=== PATIENT | female | born 1970 | race African-American/Black ===

== ENCOUNTER 2023-02-24 12:56 | Inpatient (IN) ==
[2023-02-24] MEDS ORDERED: Albuterol/Ipratropium NEB.SOL (2.5/0.5 MG) 3 ML NEB.SOLN INH ONE (14:10)
[2023-02-24 14:42] LABS: Hematocrit 22.8 % (35-45); Hemoglobin 7.7 g/dL (11.5-14.3); Mean Corpuscular Hgb Conc 33.6 g/dL (31-36); Mean Corpuscular Volume 92.3 fL (80-97); Platelet Count 233 10^3/uL (150-450); Red Blood Count 2.47 10^6/uL (3.63-4.92); Red Cell Distribution Width 21.1 % (12-17); White Blood Count 5.9 10^3/uL (3.8-11.8)
[2023-02-24 15:03] LABS: Rapid COVID-19 Molecular Undetected (Undetected)
[2023-02-24 15:08] LABS: ALT 6 U/L (7-52); Albumin 3.2 g/dL (3.2-5.2); Albumin/Globulin Ratio 0.7 (1-3); Alkaline Phosphatase 168 U/L (35-149); Anion Gap 12 mmol/L (2-16); Blood Urea Nitrogen 9 mg/dL (6-24); CO2 Carbon Dioxide 30 mmol/L (22-32); Calcium 7.5 mg/dL (8.6-10.3); Chloride 88 mmol/L (101-111); Creatinine, Serum 2.62 mg/dL (0.51-0.95); Globulin 4.9 g/dL (2-4); Glucose 201 mg/dL (70-100); Magnesium 1.8 mg/dL (1.9-2.7); Sodium 130 mmol/L (135-145); Total Bilirubin 0.7 mg/dL (0.2-1.0); Total Protein 8.1 g/dL (6.4-8.9); eGFR CKD-EPI 21.1 (>60)
[2023-02-24 15:26] LABS: Influenza A Molecular Negative (Negative); Influenza B Molecular Negative (Negative)
[2023-02-24] MEDS ORDERED: Iodixanol (CONTRAST) 320 MG/ML 100 ML SDV IV ONE (15:33)
[2023-02-24 15:35] LABS: ABS Basophils 0.1 10^3/uL (0.0-0.1); ABS Eosinophils 0.1 10^3/uL (0.0-0.5); ABS Lymphocytes 1.4 10^3/uL (1.0-4.8); ABS Monocytes 0.8 10^3/uL (0.0-0.9); ABS Neutrophils 3.5 10^3/uL (1.5-7.6); ABS Nucleated RBC 0.01 10^3/ul; Anisocytosis 3+; Eosinophil % 2.3 %; Lymphocyte % 23.2 %; Nucleated Red Blood Cells % 0.2 %/100WBC (0.0-0.8)
[2023-02-24 17:24] LABS: C Reactive Protein 102.21 mg/L (<8.01)
[2023-02-24 17:57] LABS: Potassium Redraw 3.7 mmol/L (3.5-5.0)
[2023-02-24] MEDS ORDERED: Dextrose 50% Syringe 50 ml 25 GM/50 ML SYRINGE IV PUSH PRN (18:04)
[2023-02-24 19:07] LABS: Erythrocyte Sed Rate 80 mm/Hr (0-29)
[2023-02-24] MEDS ORDERED: NS 0.9% 1000 ml BAG 200 ML IV PRN (22:15)
[2023-02-24] MEDS ORDERED: NS 0.9% 1000 ml BAG 100 ML IV PRN (22:15)
[2023-02-25] MEDS: Insulin GLARGINE 100 un/ml 10 ml VIAL SUBCUT SCH ×2 (00:57→10:18)
[2023-02-25] MEDS: CMCS: Dorzolamide 2% OPTH (NF) 10 ML BTL BOTH EYES SCH ×3 (00:57→22:06)
[2023-02-25 06:45] LABS: Hepatitis B Surface Ab Immune (Immune)
[2023-02-25 09:43] LABS: ABS Basophils 0.1 10^3/uL (0.0-0.1); ABS Eosinophils 0.2 10^3/uL (0.0-0.5); ABS Lymphocytes 1.4 10^3/uL (1.0-4.8); ABS Monocytes 1.3 10^3/uL (0.0-0.9); ABS Neutrophils 4.1 10^3/uL (1.5-7.6); ABS Nucleated RBC 0.01 10^3/ul; Eosinophil % 3.1 %; Hematocrit 22.4 % (35-45); Hemoglobin 7.6 g/dL (11.5-14.3); Lymphocyte % 19.7 %; Mean Corpuscular Hgb Conc 33.7 g/dL (31-36); Mean Corpuscular Volume 91.8 fL (80-97); Mean Platelet Volume 7.8 fL (7.5-11.2); Nucleated Red Blood Cells % 0.1 %/100WBC (0.0-0.8); Platelet Count 269 10^3/uL (150-450); Red Blood Count 2.44 10^6/uL (3.63-4.92); Red Cell Distribution Width 21.2 % (12-17); White Blood Count 7.1 10^3/uL (3.8-11.8)
[2023-02-25 11:05] LABS: Calcium 7.4 mg/dL (8.6-10.3); Creatinine, Serum 3.45 mg/dL (0.51-0.95); Magnesium 1.8 mg/dL (1.9-2.7); Potassium 3.4 mmol/L (3.5-5.0); eGFR CKD-EPI 15.1 (>60)
[2023-02-25] MEDS ORDERED: Lactated Ringers 1000 ml BAG 200 ML IV ONE (14:32)
[2023-02-25] MEDS ORDERED: PHENYLEPHRINE DRIP IVPREMIX 50 MG/250 ML BAG IV SCH (15:00)
[2023-02-25 15:24] LABS: Hematocrit 20.7 % (35-45); Hemoglobin 6.9 g/dL (11.5-14.3)
[2023-02-25 19:33] LABS: Hematocrit 21.7 % (35-45); Hemoglobin 7.2 g/dL (11.5-14.3); Mean Corpuscular Hemoglobin 30.9 pg (27-33); Mean Corpuscular Hgb Conc 33.2 g/dL (31-36); Mean Corpuscular Volume 93.2 fL (80-97); Mean Platelet Volume 7.9 fL (7.5-11.2); Platelet Count 259 10^3/uL (150-450); Red Blood Count 2.32 10^6/uL (3.63-4.92); White Blood Count 6.1 10^3/uL (3.8-11.8)
[2023-02-25] MEDS ORDERED: Dextrose 50% Syringe 50 ml 25 GM/50 ML SYRINGE IV PUSH PRN (22:11)
[2023-02-26] MEDS ORDERED: Vancomycin 1,000 MG in NS 0.9% 250 ml 250 ML IVPB ONE (03:00)
[2023-02-26] MEDS: Heparin 1,000 UNIT/ML 10 ml (10,000 UNITS) CATHLAB/DIALYSIS DIALYSIS PRN (03:28)
[2023-02-26 06:05] LABS: ABS Lymphocytes 1.1 10^3/uL (1.0-4.8); ABS Monocytes 0.8 10^3/uL (0.0-0.9); ABS Neutrophils 3.8 10^3/uL (1.5-7.6); Eosinophil % 0.3 %; Hematocrit 20.8 % (35-45); Lymphocyte % 18.4 %; Mean Corpuscular Hemoglobin 30.9 pg (27-33); Mean Corpuscular Hgb Conc 33.8 g/dL (31-36); Mean Corpuscular Volume 91.6 fL (80-97); Mean Platelet Volume 7.9 fL (7.5-11.2); Platelet Count 250 10^3/uL (150-450); Red Blood Count 2.27 10^6/uL (3.63-4.92); Red Cell Distribution Width 21.4 % (12-17); White Blood Count 5.7 10^3/uL (3.8-11.8)
[2023-02-26 06:40] LABS: Anion Gap 7 mmol/L (2-16); Blood Urea Nitrogen 6 mg/dL (6-24); CO2 Carbon Dioxide 26 mmol/L (22-32); Calcium 7.5 mg/dL (8.6-10.3); Chloride 99 mmol/L (101-111); Creatinine, Serum 1.58 mg/dL (0.51-0.95); Glucose 158 mg/dL (70-100); Magnesium 1.6 mg/dL (1.9-2.7); Sodium 132 mmol/L (135-145); eGFR CKD-EPI 38.7 (>60)
[2023-02-26] MEDS: Insulin GLARGINE 100 un/ml 10 ml VIAL SUBCUT SCH (07:48)
[2023-02-26] MEDS: CMCS: Dorzolamide 2% OPTH (NF) 10 ML BTL BOTH EYES SCH ×2 (08:14→20:00)
[2023-02-26] MEDS ORDERED: Vancomycin per Pharmacy 1 EA NOTE FOLLOW UP PRN (13:33)
[2023-02-26 14:49] LABS: Hepatitis B Surface Antigen Nonreactive (Nonreactive)
[2023-02-27 05:19] LABS: ABS Eosinophils 0.1 10^3/uL (0.0-0.5); ABS Lymphocytes 1.5 10^3/uL (1.0-4.8); ABS Monocytes 1.2 10^3/uL (0.0-0.9); ABS Neutrophils 5.2 10^3/uL (1.5-7.6); ABS Nucleated RBC 0.01 10^3/ul; Eosinophil % 0.7 %; Hematocrit 21.5 % (35-45); Lymphocyte % 19.2 %; Mean Corpuscular Hemoglobin 30.3 pg (27-33); Mean Corpuscular Hgb Conc 32.6 g/dL (31-36); Mean Platelet Volume 7.9 fL (7.5-11.2); Nucleated Red Blood Cells % 0.1 %/100WBC (0.0-0.8); Platelet Count 298 10^3/uL (150-450); Red Blood Count 2.31 10^6/uL (3.63-4.92); Red Cell Distribution Width 21.2 % (12-17)
[2023-02-27 05:35] LABS: Calcium 7.5 mg/dL (8.6-10.3); Creatinine, Serum 3.2 mg/dL (0.51-0.95); Potassium 3.4 mmol/L (3.5-5.0); eGFR CKD-EPI 16.6 (>60)
[2023-02-27] MEDS ORDERED: Potassium Chlor 20 meq TAB.ER PO ONE (05:51)
[2023-02-27 07:28] LABS: Magnesium 1.6 mg/dL (1.9-2.7)
[2023-02-27] MEDS: CMCS: Dorzolamide 2% OPTH (NF) 10 ML BTL BOTH EYES SCH ×2 (07:53→20:16)
[2023-02-27] MEDS: Insulin GLARGINE 100 un/ml 10 ml VIAL SUBCUT SCH (08:04)
[2023-02-27] MEDS ORDERED: Magnesium Sulf 4 GM/100 ML IV 4,000 MG/100 ML BAG IVPB ONE (09:44)
[2023-02-27] MEDS: Heparin 1,000 UNIT/ML 10 ml (10,000 UNITS) CATHLAB/DIALYSIS DIALYSIS PRN ×5 (14:20→18:35)
[2023-02-27] MEDS: Albumin Human 25% 25 GM/100 ML BTL IV PRN (18:46)
[2023-02-28 04:58] LABS: Hematocrit 22.7 % (35-45); Hemoglobin 7.3 g/dL (11.5-14.3); Mean Corpuscular Hemoglobin 30.8 pg (27-33); Mean Corpuscular Volume 96.2 fL (80-97); Mean Platelet Volume 8.1 fL (7.5-11.2); Platelet Count 309 10^3/uL (150-450); Red Blood Count 2.36 10^6/uL (3.63-4.92); Red Cell Distribution Width 21.5 % (12-17); White Blood Count 8.4 10^3/uL (3.8-11.8)
[2023-02-28 05:14] LABS: Calcium 7.9 mg/dL (8.6-10.3); Creatinine, Serum 2.22 mg/dL (0.51-0.95); Potassium 3.9 mmol/L (3.5-5.0); eGFR CKD-EPI 25.7 (>60)
[2023-02-28 05:28] LABS: Vancomycin Random 16.9 mcg/mL
[2023-02-28] MEDS ORDERED: Vancomycin Random Level NOTE FOLLOW UP ONE (06:00)
[2023-02-28 08:57] LABS: Glucose Confirmatory 422 mg/dL (70-100)
[2023-02-28] MEDS: Insulin GLARGINE 100 un/ml 10 ml VIAL SUBCUT SCH (09:27)
[2023-02-28] MEDS: CMCS: Dorzolamide 2% OPTH (NF) 10 ML BTL BOTH EYES SCH (09:30)
[2023-02-28] MEDS ORDERED: Lidocaine 2.5%/Prilocain 2.5% 5 GM TUBE TOPICAL SCH (15:00)
[2023-02-28] MEDS ORDERED: Vancomycin 500 MG in NS 0.9% 250 ML IVPB ONE (16:00)
[2023-02-28] MEDS ORDERED: Vancomycin per Pharmacy 1 EA NOTE FOLLOW UP PRN (18:05)
[2023-03-01] MEDS: CMCS: Dorzolamide 2% OPTH (NF) 10 ML BTL BOTH EYES SCH ×3 (00:26→20:35)
[2023-03-01] MEDS ORDERED: Saline NASAL SPRAY 0.65% BTL BOTH NARES PRN (01:45)
[2023-03-01] MEDS ORDERED: Vancomycin Random Level NOTE FOLLOW UP ONE (06:00)
[2023-03-01] MEDS: Insulin GLARGINE 100 un/ml 10 ml VIAL SUBCUT SCH (07:51)
[2023-03-01] MEDS: Heparin 1,000 UNIT/ML 10 ml (10,000 UNITS) CATHLAB/DIALYSIS DIALYSIS PRN ×5 (08:00→12:30)
[2023-03-01] MEDS: Albumin Human 25% 25 GM/100 ML BTL IV PRN ×3 (08:21→12:02)
[2023-03-01 08:45] LABS: CRP High Sensitivity 33.61 mg/L (<2.00); Calcium 8.2 mg/dL (8.6-10.3); Creatinine, Serum 3.68 mg/dL (0.51-0.95); Magnesium 2.1 mg/dL (1.9-2.7); Potassium 4.9 mmol/L (3.5-5.0)
[2023-03-01 08:46] LABS: ABS Lymphocytes 1.1 10^3/uL (1.0-4.8); ABS Monocytes 0.7 10^3/uL (0.0-0.9); ABS Neutrophils 4.6 10^3/uL (1.5-7.6); ABS Nucleated RBC 0.01 10^3/ul; Hematocrit 17.3 % (35-45); Hemoglobin 5.5 g/dL (11.5-14.3); Lymphocyte % 17.1 %; Mean Corpuscular Hemoglobin 30.8 pg (27-33); Mean Corpuscular Hgb Conc 31.8 g/dL (31-36); Mean Corpuscular Volume 96.8 fL (80-97); Mean Platelet Volume 7.4 fL (7.5-11.2); Nucleated Red Blood Cells % 0.1 %/100WBC (0.0-0.8); Platelet Count 259 10^3/uL (150-450); Red Blood Count 1.79 10^6/uL (3.63-4.92); Red Cell Distribution Width 21.6 % (12-17); White Blood Count 6.4 10^3/uL (3.8-11.8)
[2023-03-01] MEDS ORDERED: Ondansetron 4 mg VIAL 2 MG/ML 2 ml VIAL IV PRN (08:47)
[2023-03-01 09:23] LABS: TSH Ultra Thyroid Stim Horm 4.87 mcIU/mL (0.34-5.60)
[2023-03-01 09:41] LABS: ABS Lymphocytes 1.8 10^3/uL (1.0-4.8); ABS Monocytes 0.9 10^3/uL (0.0-0.9); ABS Neutrophils 6.2 10^3/uL (1.5-7.6); ABS Nucleated RBC 0.01 10^3/ul; Eosinophil % 0.1 %; Hematocrit 22.3 % (35-45); Hemoglobin 7.4 g/dL (11.5-14.3); Lymphocyte % 20.1 %; Mean Corpuscular Hemoglobin 31.5 pg (27-33); Mean Corpuscular Hgb Conc 33.1 g/dL (31-36); Mean Corpuscular Volume 95.1 fL (80-97); Mean Platelet Volume 7.7 fL (7.5-11.2); Nucleated Red Blood Cells % 0.1 %/100WBC (0.0-0.8); Platelet Count 345 10^3/uL (150-450); Red Blood Count 2.34 10^6/uL (3.63-4.92); Red Cell Distribution Width 21.2 % (12-17); White Blood Count 8.9 10^3/uL (3.8-11.8)
[2023-03-01 11:20] LABS: C Reactive Protein 33.94 mg/L (<8.01)
[2023-03-01] MEDS ORDERED: Vancomycin 500 MG in NS 0.9% 250 ML IVPB ONE (16:00)
[2023-03-02] MEDS ORDERED: Vancomycin Random Level NOTE FOLLOW UP ONE (06:00)
[2023-03-02 06:09] LABS: ABS Eosinophils 0.1 10^3/uL (0.0-0.5); ABS Lymphocytes 1.6 10^3/uL (1.0-4.8); ABS Monocytes 1.5 10^3/uL (0.0-0.9); ABS Neutrophils 5.2 10^3/uL (1.5-7.6); ABS Nucleated RBC 0.07 10^3/ul; Eosinophil % 0.8 %; Hemoglobin 7.3 g/dL (11.5-14.3); Mean Corpuscular Hemoglobin 31.5 pg (27-33); Mean Corpuscular Volume 95.4 fL (80-97); Mean Platelet Volume 7.5 fL (7.5-11.2); Nucleated Red Blood Cells % 0.8 %/100WBC (0.0-0.8); Platelet Count 327 10^3/uL (150-450); Red Blood Count 2.31 10^6/uL (3.63-4.92); Red Cell Distribution Width 21.5 % (12-17); White Blood Count 8.4 10^3/uL (3.8-11.8)
[2023-03-02 06:28] LABS: Calcium 8.4 mg/dL (8.6-10.3); Creatinine, Serum 2.42 mg/dL (0.51-0.95); Magnesium 1.7 mg/dL (1.9-2.7); Potassium 3.9 mmol/L (3.5-5.0); eGFR CKD-EPI 23.2 (>60)
[2023-03-02] MEDS: Insulin GLARGINE 100 un/ml 10 ml VIAL SUBCUT SCH (09:08)
[2023-03-02] MEDS: CMCS: Dorzolamide 2% OPTH (NF) 10 ML BTL BOTH EYES SCH (09:10)
[2023-03-02] MEDS: Heparin 1,000 UNIT/ML 10 ml (10,000 UNITS) CATHLAB/DIALYSIS DIALYSIS PRN ×3 (10:55→14:12)
[2023-03-02] MEDS ORDERED: Vancomycin 500 MG in NS 0.9% 250 ML IVPB ONE (14:00)
[2023-03-02 14:54] VITALS: BP 125/86
[2023-03-03] MEDS ORDERED: Vancomycin Random Level NOTE FOLLOW UP ONE (06:00)
== END 2023-03-02 16:50 | disposition home or self-care (01) | DRG 314 ==
LOC: EDHOLD 12:56 → ED 12:56 → MEDTELE 20:03 → ICU 02-25 14:57 → MED 02-28 18:34
PROVIDERS: ADMIT Student in an Organized Health Care Education/Training Program; ATTEND Student in an Organized Health Care Education/Training Program

== ENCOUNTER 2023-03-04 12:14 | Inpatient (IN) ==
[2023-03-04] MEDS: NS 0.9% 250 ml 250 ML IV ONE ×2 (12:50→15:02)
[2023-03-04 12:54] LABS: ABS Basophils 0.1 10^3/uL (0.0-0.1); ABS Eosinophils 0.1 10^3/uL (0.0-0.5); ABS Monocytes 1.4 10^3/uL (0.0-0.9); ABS Neutrophils 6.5 10^3/uL (1.5-7.6); ABS Nucleated RBC 0.12 10^3/ul; Eosinophil % 1.2 %; Hematocrit 24.3 % (35-45); Hemoglobin 7.8 g/dL (11.5-14.3); Lymphocyte % 20.2 %; Mean Corpuscular Hemoglobin 31.8 pg (27-33); Mean Corpuscular Volume 99.5 fL (80-97); Mean Platelet Volume 8.1 fL (7.5-11.2); Nucleated Red Blood Cells % 1.1 %/100WBC (0.0-0.8); Platelet Count 322 10^3/uL (150-450); Red Blood Count 2.44 10^6/uL (3.63-4.92); Red Cell Distribution Width 22.9 % (12-17); White Blood Count 10.1 10^3/uL (3.8-11.8)
[2023-03-04 13:24] LABS: ALT 8 U/L (7-52); Albumin 4.1 g/dL (3.2-5.2); Alkaline Phosphatase 142 U/L (35-149); Anion Gap 16 mmol/L (2-16); Blood Urea Nitrogen 19 mg/dL (6-24); C Reactive Protein 85.34 mg/L (<8.01); CO2 Carbon Dioxide 19 mmol/L (22-32); Calcium 8.8 mg/dL (8.6-10.3); Chloride 92 mmol/L (101-111); Creatinine, Serum 2.69 mg/dL (0.51-0.95); Globulin 4.1 g/dL (2-4); Glucose 165 mg/dL (70-100); Lipase 133 U/L (11.0-82.0); Sodium 127 mmol/L (135-145); Total Bilirubin 0.8 mg/dL (0.2-1.0); Total Protein 8.2 g/dL (6.4-8.9); eGFR CKD-EPI 20.4 (>60)
[2023-03-04 13:26] LABS: High Sens Troponin Baseline 21 pg/mL (<15)
[2023-03-04] MEDS: Piperacillin/Tazobac 3.375 BAG 3.375 GM/100 ML BAG IV ONE (13:57)
[2023-03-04 14:34] LABS: High Sensitivity Troponin 1 Hr 21 pg/mL (<15)
[2023-03-04] MEDS: Vancomycin 1,000 MG in NS 0.9% 250 ml 250 ML IVPB ONE (14:45)
[2023-03-04] MEDS ORDERED: NON FORMULARY MED (Vancomycin Per Pharmacy 1 NOTE) FOLLOW UP SCH (14:45)
[2023-03-04 14:46] LABS: Magnesium 1.8 mg/dL (1.9-2.7); Phosphorus 1.7 mg/dL (2.5-5.0); Potassium Redraw 3.7 mmol/L (3.5-5.0)
[2023-03-04] MEDS ORDERED: Dextrose 50% Syringe 50 ml 25 GM/50 ML SYRINGE IV PUSH PRN ×2 (17:48)
[2023-03-04] MEDS: Fluticasone NASAL SPRAY 50MCG 16 gm SPRAY BTL INTRANASAL SCH (18:05)
[2023-03-04] MEDS: Dorzolamide 2% OPTH (NF) 10 ML BTL BOTH EYES SCH (21:13)
[2023-03-05 01:01] LABS: Hematocrit 23.7 % (35-45); Hemoglobin 7.4 g/dL (11.5-14.3); Mean Corpuscular Hemoglobin 31.8 pg (27-33); Mean Corpuscular Hgb Conc 31.3 g/dL (31-36); Mean Corpuscular Volume 101.7 fL (80-97); Mean Platelet Volume 7.8 fL (7.5-11.2); Platelet Count 292 10^3/uL (150-450); Red Blood Count 2.33 10^6/uL (3.63-4.92); Red Cell Distribution Width 22.6 % (12-17); White Blood Count 9.8 10^3/uL (3.8-11.8)
[2023-03-05 01:29] LABS: ABS Eosinophils 0.1 10^3/uL (0.0-0.5); ABS Lymphocytes 2.3 10^3/uL (1.0-4.8); ABS Monocytes 1.4 10^3/uL (0.0-0.9); ABS Neutrophils 5.9 10^3/uL (1.5-7.6); ABS Nucleated RBC 0.15 10^3/ul; Anisocytosis 2+; Eosinophil % 0.6 %; Lymphocyte % 23.4 %; Nucleated Red Blood Cells % 1.6 %/100WBC (0.0-0.8); Polychromasia 1+
[2023-03-05 01:32] LABS: Macrocytosis 1+
[2023-03-05 01:34] LABS: Anion Gap 20 mmol/L (2-16); Blood Urea Nitrogen 22 mg/dL (6-24); CO2 Carbon Dioxide 14 mmol/L (22-32); Calcium 8.4 mg/dL (8.6-10.3); Chloride 94 mmol/L (101-111); Creatinine, Serum 3.25 mg/dL (0.51-0.95); Glucose 96 mg/dL (70-100); Sodium 128 mmol/L (135-145); eGFR CKD-EPI 16.3 (>60)
[2023-03-05 02:45] LABS: PCO2 Arterial 24 mmHg (35-45); PO2 Arterial 179 mmHg (80-100)
[2023-03-05] MEDS: Iodixanol (CONTRAST) 320 MG/ML 100 ML SDV IV ONE (03:09)
[2023-03-05] MEDS: NS 0.9% 250 ml 250 ML IV SCH (07:20)
[2023-03-05] MEDS: fentaNYL 100 mcg/2 ml 50 MCG/ML VIAL IV ONE (07:20)
[2023-03-05] MEDS: Prothrombin Complex Conc. DOSE = Units Factor IX (nine) IV SLOW PU ONE (07:35)
[2023-03-05] MEDS: Albumin Human 5% 12.5 GM/250 ML BTL IV ONE ×2 (07:48→11:41)
[2023-03-05] MEDS: Norepinephrine 4 MG/250mL NS 4,000 MCG/250 ML BAG IV SCH ×2 (07:58→11:52)
[2023-03-05] MEDS: Midazolam 5 mg/5 ml VIAL 1 mg/ml 5 ml VIAL (5 mg) IV SLOW PU ONE (08:08)
[2023-03-05 08:55] LABS: Body Fluid Appearance Bloody; Body Fluid Color Red; Body Fluid Source Pericardial Fluid
[2023-03-05] MEDS: fentaNYL INFUSION 50 mcg/mL VL 2,500 MCG/50 ML VIAL IV SCH ×2 (09:30→21:40)
[2023-03-05] MEDS: EPINEPHrine 1 MG/ML MDV 5 MG in D5W 250 ml BAG 245 ML IV SCH (09:49)
[2023-03-05 09:54] LABS: Body Fluid Total Nucleated 6579 /mcL
[2023-03-05 09:56] LABS: Resp Rate 14
[2023-03-05 09:59] LABS: PCO2 Arterial 31 mmHg (35-45); PO2 Arterial 338 mmHg (80-100)
[2023-03-05 11:08] LABS: Body Fluid Meta 1 %; Body Fluid Mono 6 %; Body Fluid NRBC 3; Body Fluid Total Cells Counted 200
[2023-03-05] MEDS: Lidocaine 1% VIAL 10 MG/ML 30 ML VIAL ONE (11:40)
[2023-03-05] MEDS: Flumazenil 0.5 mg/5 ml 0.1 MG/ML 5 ml VIAL ONE (11:40)
[2023-03-05] MEDS: Naloxone 4 mg VIAL 0.4 MG/ML 10 ml VIAL (4 mg) ONE (11:40)
[2023-03-05] MEDS: Norepinephrine 4 MG/250mL D5W 4,000 MCG/250 ML BAG IV ONE (11:43)
[2023-03-05] MEDS: EPINEPHrine SYR 0.1MG/ML 10 ml SYRINGE IV ONE (11:43)
[2023-03-05] MEDS: Midazolam 5 mg/5 ml VIAL 1 mg/ml 5 ml VIAL (5 mg) ONE (12:08)
[2023-03-05] MEDS: fentaNYL 100 mcg/2 ml 50 MCG/ML VIAL ONE (12:09)
[2023-03-05 13:10] LABS: Hematocrit 22.7 % (35-45); Hemoglobin 7.3 g/dL (11.5-14.3); Mean Corpuscular Hemoglobin 32.1 pg (27-33); Mean Corpuscular Hgb Conc 32.2 g/dL (31-36); Mean Corpuscular Volume 99.7 fL (80-97); Mean Platelet Volume 7.7 fL (7.5-11.2); Platelet Count 293 10^3/uL (150-450); Red Blood Count 2.28 10^6/uL (3.63-4.92); Red Cell Distribution Width 24.2 % (12-17); White Blood Count 18.2 10^3/uL (3.8-11.8)
[2023-03-05] MEDS ORDERED: NS 0.9% 1000 ml BAG 200 ML IV PRN (13:17)
[2023-03-05] MEDS ORDERED: NS 0.9% 1000 ml BAG 100 ML IV PRN (13:17)
[2023-03-05 13:40] LABS: ABS Monocytes 2.8 10^3/uL (0.0-0.9); ABS Neutrophils 14.4 10^3/uL (1.5-7.6); ABS Nucleated RBC 0.09 10^3/ul; Lymphocyte % 5.3 %; Nucleated Red Blood Cells % 0.5 %/100WBC (0.0-0.8)
[2023-03-05 13:47] LABS: Albumin 3.6 g/dL (3.2-5.2); Albumin/Globulin Ratio 1.2 (1-3); Calcium 7.9 mg/dL (8.6-10.3); Creatinine, Serum 3.45 mg/dL (0.51-0.95); Potassium 3.6 mmol/L (3.5-5.0); Total Bilirubin 1.1 mg/dL (0.2-1.0); Total Protein 6.6 g/dL (6.4-8.9); eGFR CKD-EPI 15.1 (>60)
[2023-03-05] MEDS: Vancomycin 1,000 MG in NS 0.9% 250 ml 250 ML IVPB ONE (14:22)
[2023-03-05] MEDS: fentaNYL 100 mcg/2 ml 50 MCG/ML VIAL IV SLOW PU PRN (15:47)
[2023-03-05] MEDS: Chlorhexidine MOUTHWASH 0.12% 15 ML UDC TOPICAL SCH (16:18)
[2023-03-05] MEDS ORDERED: Vancomycin per Pharmacy 1 EA NOTE FOLLOW UP PRN (17:00)
[2023-03-05] MEDS: Dexmedetomidine 1,000 MCG in NS 0.9% 250 ml 240 ML IV SCH (17:10)
[2023-03-05] MEDS ORDERED: Vancomycin - DIALYSIS DOSING 1 EA NOTE FOLLOW UP SCH (18:00)
[2023-03-06] MEDS: Vancomycin Random Level NOTE FOLLOW UP ONE (06:22)
[2023-03-06 06:41] LABS: Hematocrit 25.3 % (35-45); Hemoglobin 8.1 g/dL (11.5-14.3); Mean Corpuscular Hemoglobin 32.4 pg (27-33); Mean Corpuscular Volume 101.1 fL (80-97); Mean Platelet Volume 7.4 fL (7.5-11.2); Platelet Count 345 10^3/uL (150-450); Red Blood Count 2.51 10^6/uL (3.63-4.92); White Blood Count 17.8 10^3/uL (3.8-11.8)
[2023-03-06 06:57] LABS: Calcium 7.8 mg/dL (8.6-10.3); Creatinine, Serum 3.99 mg/dL (0.51-0.95); Potassium 4.3 mmol/L (3.5-5.0); eGFR CKD-EPI 12.7 (>60)
[2023-03-06 07:12] LABS: ABS Basophils 0.2 10^3/uL (0.0-0.1); ABS Lymphocytes 1.5 10^3/uL (1.0-4.8); ABS Monocytes 2.4 10^3/uL (0.0-0.9); ABS Neutrophils 13.7 10^3/uL (1.5-7.6); ABS Nucleated RBC 0.16 10^3/ul; Anisocytosis 3+; Eosinophil % 0.3 %; Lymphocyte % 8.2 %; Macrocytosis 1+; Nucleated Red Blood Cells % 0.9 %/100WBC (0.0-0.8); Polychromasia 3+
[2023-03-06] MEDS: Heparin 1,000 UNIT/ML 10 ml (10,000 UNITS) CATHLAB/DIALYSIS DIALYSIS PRN (07:38)
[2023-03-06] MEDS: Albumin Human 25% 25 GM/100 ML BTL IV PRN (07:48)
[2023-03-06] MEDS ORDERED: Zosyn per Pharmacy NOTE FOLLOW UP SCH (09:00)
[2023-03-06] MEDS: Norepinephrine 4 MG/250mL NS 4,000 MCG/250 ML BAG IV SCH (09:56)
[2023-03-06] MEDS: Pantoprazole VIAL 40 MG VIAL IV SCH (11:35)
[2023-03-06] MEDS: Piperacillin/Tazobac 3.375 BAG 3.375 GM/100 ML BAG IV ONE (11:52)
[2023-03-06] MEDS: Norepinephrine 16 MG/250mL NS 16,000 MCG/250 ML BAG IV SCH (12:17)
[2023-03-06] MEDS: ZOSYN 3.375 GM Q12H per EXTENDED INFUSION IV SCH (15:40)
[2023-03-06] MEDS ORDERED: NS 0.9% 1000 ml BAG 200 ML IV PRN (16:01)
[2023-03-06 17:51] LABS: PCO2 Arterial 37 mmHg (35-45); PO2 Arterial 152 mmHg (80-100)
[2023-03-06 18:18] LABS: Albumin 3.7 g/dL (3.2-5.2); Albumin/Globulin Ratio 1.4 (1-3); Calcium 8.1 mg/dL (8.6-10.3); Creatinine, Serum 1.78 mg/dL (0.51-0.95); Globulin 2.7 g/dL (2-4); Magnesium 1.5 mg/dL (1.9-2.7); Total Protein 6.4 g/dL (6.4-8.9); eGFR CKD-EPI 33.5 (>60)
[2023-03-06 18:29] LABS: ABS Basophils 0.1 10^3/uL (0.0-0.1); ABS Eosinophils 0.1 10^3/uL (0.0-0.5); ABS Lymphocytes 1.4 10^3/uL (1.0-4.8); ABS Monocytes 2.4 10^3/uL (0.0-0.9); ABS Neutrophils 8.3 10^3/uL (1.5-7.6); ABS Nucleated RBC 0.07 10^3/ul; Anisocytosis 2+; Eosinophil % 0.8 %; Hematocrit 22.1 % (35-45); Hemoglobin 7.2 g/dL (11.5-14.3); Lymphocyte % 11.7 %; Macrocytosis 2+; Mean Corpuscular Hemoglobin 31.8 pg (27-33); Mean Corpuscular Hgb Conc 32.4 g/dL (31-36); Mean Corpuscular Volume 98.3 fL (80-97); Mean Platelet Volume 7.1 fL (7.5-11.2); Microcytosis 1+; Nucleated Red Blood Cells % 0.6 %/100WBC (0.0-0.8); Platelet Count 249 10^3/uL (150-450); Red Blood Count 2.25 10^6/uL (3.63-4.92); Red Cell Distribution Width 27.4 % (12-17); Target Cells 1+; White Blood Count 12.3 10^3/uL (3.8-11.8)
[2023-03-06] MEDS: KCL 20 MEQ/100 ML IVPREMIX 20 MEQ/100 ML BAG IV ONE (19:37)
[2023-03-06] MEDS: Magnesium Sulfate 2 gm BAG 2 GM/50 ML BAG IVPB ONE (20:11)
[2023-03-06] MEDS: EPINEPHRINE IV SCH (20:42)
[2023-03-06] MEDS: NS 0.9% IV SCH (20:42)
[2023-03-07 00:15] LABS: Hematocrit 23.7 % (35-45); Hemoglobin 7.8 g/dL (11.5-14.3)
[2023-03-07 00:23] LABS: Calcium 8.5 mg/dL (8.6-10.3); Creatinine, Serum 2.06 mg/dL (0.51-0.95); Magnesium 2.5 mg/dL (1.9-2.7); Potassium 3.5 mmol/L (3.5-5.0); eGFR CKD-EPI 28.1 (>60)
[2023-03-07 04:30] LABS: Calcium 8.2 mg/dL (8.6-10.3); Creatinine, Serum 2.29 mg/dL (0.51-0.95); Magnesium 2.4 mg/dL (1.9-2.7); Potassium 3.3 mmol/L (3.5-5.0); eGFR CKD-EPI 24.8 (>60)
[2023-03-07] MEDS: Vancomycin Random Level NOTE FOLLOW UP ONE (04:30)
[2023-03-07 04:31] LABS: Hematocrit 23.7 % (35-45); Hemoglobin 7.7 g/dL (11.5-14.3); Mean Corpuscular Hemoglobin 31.6 pg (27-33); Mean Corpuscular Hgb Conc 32.6 g/dL (31-36); Mean Corpuscular Volume 96.9 fL (80-97); Mean Platelet Volume 7.3 fL (7.5-11.2); Platelet Count 260 10^3/uL (150-450); Red Blood Count 2.45 10^6/uL (3.63-4.92); Red Cell Distribution Width 26.6 % (12-17); White Blood Count 13.7 10^3/uL (3.8-11.8)
[2023-03-07 04:50] LABS: ABS Basophils 0.1 10^3/uL (0.0-0.1); ABS Eosinophils 0.1 10^3/uL (0.0-0.5); ABS Lymphocytes 2.2 10^3/uL (1.0-4.8); ABS Monocytes 2.4 10^3/uL (0.0-0.9); ABS Neutrophils 8.8 10^3/uL (1.5-7.6); ABS Nucleated RBC 0.09 10^3/ul; Eosinophil % 0.7 %; Lymphocyte % 16.1 %; Nucleated Red Blood Cells % 0.7 %/100WBC (0.0-0.8)
[2023-03-07] MEDS: KCL 20 MEQ/100 ML IVPREMIX 20 MEQ/100 ML BAG IV ONE (05:06)
[2023-03-07 05:08] LABS: Vancomycin Random 32.1 mcg/mL
[2023-03-07] MEDS ORDERED: Vancomycin 500 MG in NS 0.9% 250 ml 250 ML IVPB SCH (09:00)
[2023-03-07] MEDS: Midazolam 2 mg/2 ml VIAL 1 mg/ml 2 ml VIAL (2 mg) IV SLOW PU ONE ×2 (10:20→19:00)
[2023-03-07] MEDS: Midazolam 2 mg/2 ml VIAL 1 mg/ml 2 ml VIAL (2 mg) ONE (10:21)
[2023-03-07 13:43] LABS: BF PH 7.3
[2023-03-07] MEDS: Heparin 1,000 UNIT/ML 10 ml (10,000 UNITS) CATHLAB/DIALYSIS DIALYSIS PRN (14:40)
[2023-03-07 14:43] LABS: Fluid Type, Protein, Total PERICARDIAL FLUID; Total Protein, BF 5.9 g/dL
[2023-03-07 15:07] VITALS: BP 121/56
[2023-03-07 15:14] LABS: Glucose, BF 2 mg/dL
[2023-03-07] MEDS: Polyethylene Glycol 3350 17 GM PACKET NG TUBE SCH (20:04)
[2023-03-08 04:17] LABS: Hematocrit 23.7 % (35-45); Hemoglobin 7.5 g/dL (11.5-14.3); Mean Corpuscular Hemoglobin 31.7 pg (27-33); Mean Corpuscular Hgb Conc 31.8 g/dL (31-36); Mean Corpuscular Volume 99.4 fL (80-97); Mean Platelet Volume 7.2 fL (7.5-11.2); Platelet Count 198 10^3/uL (150-450); Red Blood Count 2.38 10^6/uL (3.63-4.92); Red Cell Distribution Width 27.2 % (12-17); White Blood Count 14.8 10^3/uL (3.8-11.8)
[2023-03-08 04:26] LABS: Calcium 8.4 mg/dL (8.6-10.3); Creatinine, Serum 3.13 mg/dL (0.51-0.95); Magnesium 2.3 mg/dL (1.9-2.7); Potassium 3.3 mmol/L (3.5-5.0)
[2023-03-08] MEDS: KCL 20 MEQ/100 ML IVPREMIX 20 MEQ/100 ML BAG IV ONE (05:06)
[2023-03-08 05:09] LABS: Vancomycin Random 29.8 mcg/mL
[2023-03-08 05:34] LABS: ABS Basophils 0.1 10^3/uL (0.0-0.1); ABS Eosinophils 0.2 10^3/uL (0.0-0.5); ABS Lymphocytes 2.2 10^3/uL (1.0-4.8); ABS Monocytes 1.9 10^3/uL (0.0-0.9); ABS Neutrophils 10.4 10^3/uL (1.5-7.6); ABS Nucleated RBC 0.04 10^3/ul; Acanthocytes 1+; Anisocytosis 3+; Hypochromasia 1+; Nucleated Red Blood Cells % 0.3 %/100WBC (0.0-0.8); Polychromasia 1+
[2023-03-08] MEDS: Midazolam 2 mg/2 ml VIAL 1 mg/ml 2 ml VIAL (2 mg) IV SLOW PU PRN (08:45)
[2023-03-08 10:40] LABS: Fluid Type: PERICARDIAL FLUID
== END 2023-03-08 14:38 | disposition expired | DRG 314 ==
LOC: ED 12:14 → EDHOLD 12:14 → SUATTDRO 14:26 → MEDTELE 15:05 → ICU 15:12
PROVIDERS: ADMIT Student in an Organized Health Care Education/Training Program; ATTEND Student in an Organized Health Care Education/Training Program